=== PATIENT | female | born 1985 | race Caucasian/White ===

== ENCOUNTER 2018-12-14 20:18 | Emergency (ER) | payer SELFPAY ==
[~2018-12-14] VITALS: Ht 160 cm; Wt 65.8 kg
[2018-12-14 20:20] VITALS: BP 132/60
--- NOTE | 2018-12-14 20:20 | NUR ---
33 Y/O FEMALE PRESENTS TO ED WITH C/O GENERALIZED ABD PAIN X12 HRS. ALSO C/O NAUSEA. 8/10 PAIN. ABD SOFT NON-TENDER. NO TRAUMA. X4 QUADRANT BOWEL SOUNDS PRESNT. POSITOINED IN BED FOR COMFORT. ER MD AWARE. CONTINUE TO MONITOR.
--- NOTE | 2018-12-14 20:20 | NUR ---
TO BED # 09 AMBULATORY
--- NOTE | 2018-12-14 20:28 | NUR ---
Dr. Del Rosario examining patient.
[2018-12-14] MEDS ORDERED: KETOROLAC 30 MG/ML VIAL IM ONE (20:30)
[2018-12-14 21:16] LABS: BASOPHILS % (AUTO) 0.2 % (0.0-2.0); EOSINOPHILS # (AUTO) 0.1 K/uL (0-0.4); EOSINOPHILS % (AUTO) 0.4 % (0.0-4.0); HEMATOCRIT 36.6 % (36-48); HEMOGLOBIN 12.2 g/dL (12.0-16.0); LYMPHOCYTES # (AUTO) 1.4 K/uL (2.5-16.5); LYMPHOCYTES % (AUTO) 9.6 % (20.5-51.1); MEAN CORPUSCULAR HEMOGLOBIN 29 pg (27-31); MEAN CORPUSCULAR HGB CONC 33 g/dL (33-37); MEAN CORPUSCULAR VOLUME 87.7 fL (80-94); MONOCYTES # (AUTO) 0.6 K/uL (0.8-1.0); MONOCYTES % (AUTO) 4.1 % (1.7-9.3); NEUTROPHILS # (AUTO) 12.9 K/uL (1.8-7.7); NEUTROPHILS % (AUTO) 85.7 % (42.2-75.2); PLATELET COUNT (AUTO) 361 K/uL (140-450); RED BLOOD CELL COUNT(AUTO) 4.18 MIL/uL (4.20-5.40); RED CELL DISTRIBUTION WIDTH 13.1 % (11.6-13.7); WHITE BLOOD COUNT (AUTO) 15.1 K/uL (4.8-10.8)
[2018-12-14 21:19] LABS: APPEARANCE,URINE CLEAR (CLEAR); BILIRUBIN,URINE NEGATIVE (NEGATIVE); BLOOD, URINE 1+ (NEGATIVE); COLOR,URINE YELLOW (YELLOW); LEUKOCYTE ESTERASE ,URINE NEGATIVE (NEGATIVE); NITRITE, URINE NEGATIVE (NEGATIVE); PH,URINE 7.5 (5.0-9.0); UGLUCOSE NEGATIVE (NEGATIVE)
--- NOTE | 2018-12-14 21:33 | NUR ---
X-Ray at bedside.
[2018-12-14 21:35] LABS: RBC,URINE 0-5 /HPF (0-5); WBC,URINE 0-5 /HPF (0-5)
[2018-12-14 21:36] LABS: ALBUMIN 3.4 g/dL (3.4-5.0); CARBON DIOXIDE 22.9 mmol/L (21-32); CREATININE 0.6 mg/dL (0.6-1.3); POTASSIUM 3.9 mmol/L (3.5-5.1); TOTAL BILIRUBIN 0.5 mg/dL (0.0-1.0)
[2018-12-14 21:59] VITALS: BP 106/54
--- NOTE | 2018-12-14 21:59 | NUR ---
Patient discharged with v/s stable. Written and verbal after care instructions given and explained by myself and translated in kosovan. Pt instructed to increased fiber and fluid intake. Patient alert, oriented and verbalized understanding of instructions. Ambulatory with steady gait. Accompanied by . All questions addressed prior to discharge. ID band removed. Patient advised to follow up with PMD. Rx of Miralax given. Locations of 24 hour pharmacies also provided. Patient educated on indication of medication including possible reaction and side effects. Opportunity to ask questions provided and answered. Work excuse provided for today.
== END 2018-12-14 21:59 | disposition home or self-care (01) ==
LOC: MED 20:18
DX: K59.00 Constipation, unspecified (principal)
CPT/HCPCS: 36415; 74018; 80053; 81001; 81025; 83690; 85025; 96372; 99284; J1885; Q0092